=== PATIENT | female | born 2000 | race Caucasian/White ===

== ENCOUNTER 2019-03-29 15:18 | Emergency (ER) | payer OTHER ==
--- NOTE | 2019-03-29 20:18 | ED ---
Dizziness - HPI Summary HPI Summary: Pt is a 18 y/o F presenting to the ED with a chief complaint of dizziness initially onset about 4 days ago. She notes recent dx of L ear infection, for which shes been on Amoxicillin since 03/22. She reports dizziness described as room spinning, trouble understanding people when she is dizzy, fatigue, tinnitus , diarrhea, some L-sided muffled hearing, some stumbling, and some numbness in her hands and feet. Pt denies any fever, chills, erythema of eyes, sore throat, CP, SOB, cough, abdominal pain, N/V, dysuria, hematuria, neck pain, myalgia, edema, rash. Pt is on control and has had some recent long flights as she is originally from [place]. - History Of Current Complaint Chief Complaint: EDDizziness Stated Complaint: DIZZINESS/MOTOR SKILLS IMPAIRED PER PT Time Seen by Provider: 03/29/19 19:38 Hx Obtained From: Patient Onset/Duration: Still Present, Gradually Timing: Days Severity Initially: Moderate Severity Currently: Moderate Character: Room Spinning, Dizzy Aggravating Factor(s): Supine To Erect Alleviating Factor(s): Lying Down Associated Signs And Symptoms: Positive: Diarrhea, Unsteady Gait. Negative: Nausea, Vomiting, Chest Pain, SOB, Fever, Chills - Allergies/Home Medications Allergies/Adverse Reactions: Allergies Allergy/AdvReac Type Severity Reaction Status Date / Time No Known Allergies Allergy Verified 03/29/19 15:24 Home Medications: Home Medications Amoxicillin 500 mg PO TID 03/29/19 [History Confirmed 03/29/19] Norethindrone-E.estradiol-Iron [Blisovi Fe 05/13 1-20 mg-Mcg] 1 tab PO DAILY 10/10 [History Confirmed 03/29/19] Spironolactone 150 mg PO DAILY 03/29/19 [History Confirmed 03/29/19] Xyzal 1 tab PO DAILY 03/29/19 [History Confirmed 03/29/19] PMH/Surg Hx/FS Hx/Imm Hx Previously Healthy: Yes Endocrine/Hematology History: Denies: Hx Diabetes Cardiovascular History: Denies: Hx Hypertension Infectious Disease History: No Infectious Disease History: Denies: Traveled Outside the [place] in Last 30 Days - Family History Known Family History: Negative: Blood Disorder - clots - Social History Occupation: Student Alcohol Use: None Hx Substance Use: No Substance Use Type: Reports: None Hx Tobacco Use: No Smoking Status (MU): Never Smoked Tobacco Review of Systems Positive: Fatigue. Negative: Fever, Chills Negative: Erythema Positive: Other - tinnitus. Negative: Sore Throat Negative: Chest Pain Negative: Shortness Of Breath, Cough Positive: Diarrhea. Negative: Abdominal Pain, Vomiting, Nausea Negative: dysuria, hematuria Negative: Myalgia - neck pain, Edema Negative: Rash Neurological: Other - dizziness Positive: Numbness All Other Systems Reviewed And Are Negative: Yes Physical Exam - Summary Physical Exam Summary: Constitutional: Well-developed, Well-nourished, Alert. (-) Distressed Skin: Warm, Dry HENT: Normocephalic; Atraumatic. L TM injected and erythematous. Eyes: Conjunctiva normal Neck: Musculoskeletal ROM normal neck. (-) JVD, (-) Stridor, (-) Tracheal deviation Cardio: Rhythm regular, rate normal, Heart sounds normal; Intact distal pulses; The pedal pulses are 2+ and symmetric. Radial pulses are 2+ and symmetric. (-) Murmur Pulmonary/Chest wall: Effort normal. (-) Respiratory distress, (-) Wheezes, (-) Rales Abd: Soft. (-) Tenderness, (-) Distension, (-) Guarding, (-) Rebound Musculoskeletal: (-) Edema Lymph: (-) Cervical adenopathy Neuro: Alert, Oriented x3, Strength normal, Cranial nerves II-XII are grossly intact. (-) Dysmetria, (-) Nystagmus, (-) Ataxia by finger to nose testing, (-) Sensory deficit. Gait is steady. Negative Rombergs, negative [id number], negative Lena-Hallpike, negative supine roll. Psych: Mood and affect Normal Triage Information Reviewed: Yes Vital Signs On Initial Exam: Initial Vitals Temp Pulse Resp BP Pulse Ox 98.3 F 82 18 129/82 100 03/29/19 15:22 03/29/19 15:22 03/29/19 15:22 03/29/19 15:22 03/29/19 15:22 Vital Signs Reviewed: Yes - Nita Coma Scale Best Eye Response: 4 - Spontaneous Best Motor Response: 6 - Obeys Commands Best Verbal Response: 5 - Oriented Coma Scale Total: 15 Procedures - Sedation Patient Received Moderate/Deep Sedation with Procedure: No Diagnostics - Vital Signs Vital Signs Temp Pulse Resp BP Pulse Ox 03/29/19 19:58 70 129/62 03/29/19 19:42 76 136/87 03/29/19 19:41 69 125/65 03/29/19 19:05 98.7 F 91 18 133/76 100 03/29/19 17:00 99.9 F 73 18 134/80 100 03/29/19 15:22 98.3 F 82 18 129/82 100 - Laboratory Result Diagrams: 03/29/19 20:59 03/29/19 20:59 Lab Statement: Any lab studies that have been ordered have been reviewed, and results considered in the medical decision making process. - Radiology Head MRI Radiology Interpretation Completed By: Radiologist Summary of Radiographic Findings: No acute abnormality. ED physician has reviewed this report. Brain MRI Radiology Interpretation Completed By: Radiologist Summary of Radiographic Findings: No acute intracranial abnormality. Effusion in left mastoid air cells. Clinical correlation with mastoiditis. ED physician has reviewed this report. - EKG 2002 Cardiac Rate: Other Rate - arrhythmia 67bpm ST Segment: Normal Ectopy: None Summary of EKG Findings: EKG at 2002 shows sinus arrhythmia at 67 bpm with no STEMI. Dr. Godfrey has reviewed and interpreted this EKG. Dizzy Course/Dx - Course Course Of Treatment: Pt is a 18 y/o F presenting to the ED with a chief complaint of dizziness. She reports dizziness described as room spinning, trouble understanding people when she is dizzy, fatigue, tinnitus, diarrhea, some L-sided muffled hearing, some stumbling, and some numbness in her hands and feet. Pt denies any fever, chills, erythema of eyes, sore throat, CP, SOB, cough, abdominal pain, N/V, dysuria, hematuria, neck pain, myalgia, edema, rash. Pt is on control and has had some recent long flights as she is originally from [place]. EKG at 2002 shows sinus arrhythmia at 67 bpm with no STEMI. On exam, pt's L TM is injected and erythematous. Gait is steady. Negative Rombergs, negative [id number], negative [place]-Hallpike, negative supine roll. Brain MRI shows: No acute intracranial abnormality. Effusion in left mastoid air cells. Clinical correlation with mastoiditis. Head MRI shows: No acute intracranial abnormality. Pt will be sent home with dx of otitis media. She is stable and agreeable with this plan. The patient has a steady gait and has been ambulatory. There were no clinical findings of mastoiditis on exam. Mastoid is not tender. I advised the use of decongestants, also hydration and meclizine.. Likely benign positional vertigo and otitis media. Continue her antibiotics. - Diagnoses Provider Diagnoses: Otitis media Discharge ED - Sign-Out/Discharge Documenting (check all that apply): Patient Departure - Discharge Plan Condition: Stable Disposition: HOME Prescriptions: Meclizine TAB* [Antivert 12.5 TAB*] 25 mg PO Q8H PRN #10 tab PRN Reason: Vertigo Patient Education Materials: Ear Infection (ED) Referrals: [facility] [Outside] Additional Instructions: Please follow up with your primary care provider within the next 1-3 days. Return to the emergency department with any new or worsening symptoms. - Billing Disposition and Condition Condition: STABLE Disposition: Home - Attestation Statements Document Initiated by Scribe: Yes Documenting Scribe: Tasneem Knight Provider For Whom Dylanibe is Documenting (Include Credential): Juan Jose Godfrey MD. Scribe Attestation: Tasneem Fitzgerald scribed for Juan Jose Godfrey MD. on 03/29/19 at 2157. Scribe Documentation Reviewed: Yes Provider Attestation: The documentation as recorded by the scribeTasneem accurately reflects the service I personally performed and the decisions made by Juan Jose zhao MD. Status of Scribe Document: Viewed
[2019-03-29 21:05] LABS: ABS Basophils 0.1 10^3/ul (0-0.2); ABS Eosinophils 0.1 10^3/ul (0-0.6); ABS Lymphocytes 2.7 10^3/ul (1.0-4.8); ABS Monocytes 0.5 10^3/ul (0-0.8); ABS Neutrophils 3.1 10^3/ul (1.5-7.7); Eosinophil % 1.7 %; Hematocrit 39 % (35-47); Hemoglobin 13.5 g/dL (12.0-16.0); Lymphocyte % 40.9 %; Mean Corpuscular HGB Conc 34 g/dL (31-36); Mean Corpuscular Hemoglobin 30 pg (27-31); Mean Corpuscular Volume 88 fL (80-97); Mean Platelet Volume 8.2 fL (7.4-10.4); Nucleated Red Blood Cells % 0.1; Platelet Count 366 10^3/uL (150-450); Red Blood Count 4.46 10^6 /uL (3.70-4.87); Red Cell Distribution Width 13 % (10-15); White Blood Count 6.5 10^3/uL (3.5-10.8)
[2019-03-29 21:24] LABS: Albumin 3.8 g/dL (3.2-5.2); Albumin/Globulin Ratio 1.3 (1-3); BUN/Creatinine Ratio 16.9 (8-20); Calcium 9.3 mg/dL (8.6-10.3); EGFR African American 116.8 (>60); EGFR Non-African American 96.6 (>60); Globulin 2.9 g/dL (2-4); Potassium 3.6 mmol/L (3.5-5.0); Total Bilirubin 0.3 mg/dL (0.2-1.0); Total Protein 6.7 g/dL (6.4-8.9)
[2019-03-29] MEDS ORDERED: Meclizine TAB* 12.5 MG PO ONE (21:52)
[2019-03-29 22:16] LABS: Urine Appearance Clear; Urine Bilirubin Negative (Negative); Urine Blood 1+ (Negative); Urine Color Yellow; Urine Glucose Negative (Negative); Urine Ketones Trace (Negative); Urine Nitrite Negative (Negative); Urine Protein Negative (Negative); Urine Specific Gravity 1.023 (1.010-1.030); Urine Urobilinogen Negative (Negative)
[2019-03-29 22:25] VITALS: BP 135/83
[2019-03-29 22:26] LABS: Urine Bacteria Absent (Absent); Urine Red Blood Cell 2+(6-10/hpf) (Absent); Urine Squamous Epithelial Cell Present (Absent); Urine White Blood Cell Absent (Absent)
== END 2019-03-29 22:10 | disposition home or self-care (01) ==
LOC: ED 15:18
DX: H66.92 Otitis media, unspecified, left ear (principal)
CPT/HCPCS: 36415; 70544; 70551; 80053; 81003; 81015; 83605; 84484; 85025; 93005; 99283; A9270-GY